=== PATIENT | female | born 1985 | race African-American/Black ===

== ENCOUNTER 2016-08-05 15:43 | Emergency (ER) | payer MEDICAID ==
[~2016-08-05] VITALS: Ht 162.6 cm; Wt 59.0 kg
[2016-08-05 15:46] VITALS: BP 113/71
== END 2016-08-05 16:14 | disposition home or self-care (01) ==
LOC: ER 15:44
DX: Z53.21 Procedure and treatment not carried out due to patient leaving prior to being seen by health care provider (principal)
CPT/HCPCS: 99283